=== PATIENT | male | born 1960 | race Caucasian/White ===

== ENCOUNTER 2017-07-17 13:28 | Emergency (ER) | payer BC ==
--- NOTE | 2017-07-20 10:34 | ER ---
DATE SEEN: 07/17/2017 TIME SEEN: The patient is seen at 1340 hours. 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 He went to the [employer] at 1130 hours and had an omelette, (potential use of monosodium glutamate exposure). He notes he has watering from his eyes. His left lower jaw has mild swelling. He was on the treadmill this morning, and after 20 minutes, he had so much itching of his fingers that he stopped the treadmill. Denies any unusual foods he has eaten. He did not work today or yesterday. No unusual exposures to chemicals, cosmetics, irritants, new medicines, parabens, insecticides, herbicides. He noted that, after he had eaten at the restaurant, he had diarrhea. He had an egg omelette. No diabetes, heart disease, high blood pressure, other serious illnesses, asthma. MEDICATIONS: None. SOCIAL HISTORY: The patient does not smoke. Does not drink alcohol. He is asthenic, athletic man for his age. REVIEW OF SYSTEMS: Negative. PHYSICAL EXAMINATION: VITAL SIGNS: Blood pressure 122/77, heart rate 61 and sinus, respirations 17, oxygen saturation 94%, and temperature is 36.8 degrees centigrade. Weight 77.1 kg with a BMI of 25.8 kg/m2. GENERAL: Griffin man in no acute distress. He apparently has multiple wrinkles on the infraorbital region. HEENT: There is slight draping of his upper orbital soft tissue over his eye, but he still can see vision. He is able to see and no compromise in the visual field. More edema noted to the right lateral upper orbit. He has mild edema to the left side of his face. No pain with percussion of dental structures and no tongue swelling, but he has mild uvular edema. No posterior pharyngeal abnormalities. NECK: No bruits or wheezes. No cervical adenopathy or thyromegaly. LUNGS: Clear without wheezes, rales, or rhonchi. HEART: S1, S2, sinus rhythm. No irregular rate and rhythm. ABDOMEN: Soft, no guarding, no abdominal discomfort. In terms of vital signs, no orthostatic hypertension, no associated nausea, lightheadedness, or diaphoresis. ASSESSMENT: 1. Allergic irritant. Probably ingested. Perhaps related to having been at the [employer] restaurant, exposure to monosodium glutamate. He has been there before without complications, so that also could be presumptive, still could be remote, could be something else he ingested at the [employer] restaurant. 2. It is most likely ingestion as opposed to contactant. The fact he has intraoral changes and mild angioedema on the left side of the face which is almost imperceptible. He has a slight tingling at the side of his face secondary to probably peripheral nerve dysesthesias secondary to edema around the nerve. PLAN: 1. Treat conservatively. The patient does not have hereditary C1-C2 deficiency. 2. The patient was advised this potentially could get worse. If it does, may need to return to the emergency room if he has difficulty breathing. Otherwise, treat his angioedema. The data suggests angioedema response to prednisone can be limited. Follow up with doctor in 24 hours or less if markedly worse, otherwise in 7 days. DIAGNOSES: 1. Angioedema. 2. He does not take MARTIR inhibitors - not MARTIR inhibitor induced. 3. No hereditary factor C1, factor C2 deficiency. 4. Could be allergic mediated process. Trial of prednisone may or may not improve status. If it is markedly worse, to return to the emergency room. /[id number] CRISPIN/UNA
== END 2017-07-17 14:15 | disposition home or self-care (01) ==
LOC: FB.ED 13:28
DX: T78.3XXA Angioneurotic edema, initial encounter (principal)
CPT/HCPCS: 99283